=== PATIENT | male | born 1995 | race Hispanic/Latino ===

== ENCOUNTER 2023-08-22 12:01 | Emergency (ER) | payer OTHER ==
[~2023-08-22] VITALS: Ht 170.2 cm; Wt 86.2 kg
[2023-08-22 12:25] VITALS: BP 171/100; PULSE 108; RESP 18
[2023-08-22 13:02] LABS: RAPID GROUP A STREP negative (NEGATIVE)
[2023-08-22 13:06] LABS: SARS-CoV-2, RNA, NAAT NEGATIVE SARS CoV-2 (NEGATIVE)
[2023-08-22 13:12] LABS: INFLUENZA TYPE A Negative For Type A (NEGATIVE); INFLUENZA TYPE B Negative For Type B (NEGATIVE)
[2023-08-22] MEDS ORDERED: GUAI5LIQ13 PO (13:48)
[2023-08-22] MEDS ORDERED: AZIT250T9 PO (13:48)
== END 2023-08-22 14:00 | disposition home or self-care (01) ==
LOC: EDH 12:01
DX: R05.9 Cough, unspecified (principal); J20.9 Acute bronchitis, unspecified; I10 Essential (primary) hypertension; Z20.822 Contact with and (suspected) exposure to COVID-19
CPT/HCPCS: 71046; 87635; 87804; 87880